=== PATIENT | male | born 1965 | race Caucasian/White ===

== ENCOUNTER 2017-04-03 22:27 | Emergency (ER) | payer OTHER ==
[~2017-04-03] VITALS: Ht 165.1 cm; Wt 118.5 kg
[~2017-04-03 22:27] MED LIST: AUGMENTIN500 MG PO; ENDOCET 5-3251 EACH PO; FLEXERIL10 MG PO; GLIPIZIDE PO; GLIPIZIDE10 MG PO; GLIPIZIDE5 MG PO; GLUCOTROL10 MG PO; HYDROCODON-ACE1 EAC7 PO; LACRI-LUBE S.O3.5 GM LEFT EYE; LISINOPRIL5 MG PO; METFORMIN HCL1000 MG PO; METFORMIN HCL500 MG PO; MOTRIN800 MG PO; NICOTINE PATCH1 EAC2 TD; NOHOMEMEDS; NORCO 5/3251 TABLET PO; PRAVASTATIN SOD40 MG PO; PREDNISONE50 MG PO; VICTOZA0.6 MG/0.1 SC; ZANTAC150 MG PO; ZOFRAN4 MG PO
[2017-04-03] MEDS ORDERED: VALTREX1000 MG PO (23:13)
[2017-04-03] MEDS ORDERED: MOTRIN800 MG PO (23:13)
[2017-04-03] MEDS ORDERED: NORCO 10/3251 TABLET PO (23:13)
[2017-04-03 23:19] VITALS: BP 120/78
== END 2017-04-03 23:27 | disposition home or self-care (01) ==
LOC: EME 22:27 → RME 22:27
DX: B02.9 Zoster without complications (principal); E11.9 Type 2 diabetes mellitus without complications; Z79.84 Long term (current) use of oral hypoglycemic drugs; Z86.73 Personal history of transient ischemic attack (TIA), and cerebral infarction without residual deficits; Z87.891 Personal history of nicotine dependence
CPT/HCPCS: 99281; 99284